=== PATIENT | female | born 1980 | race Caucasian/White ===

== ENCOUNTER 2017-12-11 22:19 | Emergency (ER) | payer MEDICAID ==
[~2017-12-11] VITALS: Ht 154.9 cm; Wt 67.6 kg
[2017-12-11 22:24] VITALS: BP_SYST 141
[2017-12-11 23:23] LABS: BILIRUBIN,URINE NEGATIVE (NEGATIVE); BLOOD, URINE TRACE (NEGATIVE); CLARITY/URINE CLEAR (CLEAR); COLOR,URINE YELLOW (YELLOW); GLUCOSE,URINE NEGATIVE (NEGATIVE); KETONES,URINE NEGATIVE (NEGATIVE); LEUKOCYTE ESTERASE ,URINE NEGATIVE (NEGATIVE); NITRITE, URINE NEGATIVE (NEGATIVE); PROTEIN URINE NEGATIVE (NEGATIVE); UROBILINOGEN,URINE 0.2 (0.2-1.0)
[2017-12-11 23:26] LABS: BACTERIA,URINE FEW /HPF (None Seen); WBC,URINE 0-3 /HPF (0-3)
[2017-12-12 00:09] LABS: INFLUENZA A&B ANTIGEN SCREEN NEGATIVE FOR A & B (NEGATIVE); STREPTOCOCCUS A SCREEN (RAPID) POSITIVE (NEGATIVE)
[2017-12-12] MEDS ORDERED: AMOXICILLIN 500 MG CAPSULE PO ONE (00:30)
[2017-12-12 00:50] VITALS: BP_SYST 139
== END 2017-12-12 00:50 | disposition home or self-care (01) ==
LOC: SED 22:19
DX: J02.0 Streptococcal pharyngitis (principal); M54.6 Pain in thoracic spine; R19.7 Diarrhea, unspecified
CPT/HCPCS: 36415; 81000-TC; 81025; 86403; 86710; 99284

== ENCOUNTER 2017-12-21 15:53 | Emergency (ER) | payer MEDICAID ==
[~2017-12-21] VITALS: Ht 154.9 cm; Wt 71.2 kg
[2017-12-21 15:59] VITALS: BP_SYST 131
[2017-12-21] MEDS ORDERED: LIDOCAINE VISCOUS 2%, 15 ML UDC MM ONE (16:30)
[2017-12-21] MEDS ORDERED: BELLADONNA ALKALOIDS/PHENOBARB 5 ML UDC PO ONE (16:30)
[2017-12-21] MEDS ORDERED: MAG-AL HYDROX/SIMETH 30 ML UDC PO ONE (16:30)
[2017-12-21 16:44] LABS: BILIRUBIN,URINE NEGATIVE (NEGATIVE); CLARITY/URINE CLEAR (CLEAR); COLOR,URINE YELLOW (YELLOW); GLUCOSE,URINE NEGATIVE (NEGATIVE); KETONES,URINE NEGATIVE (NEGATIVE); LEUKOCYTE ESTERASE ,URINE NEGATIVE (NEGATIVE); NITRITE, URINE NEGATIVE (NEGATIVE); PROTEIN URINE NEGATIVE (NEGATIVE); UROBILINOGEN,URINE 0.2 (0.2-1.0)
[2017-12-21 16:49] LABS: BLOOD, URINE TRACE (NEGATIVE)
[2017-12-21 16:57] LABS: BACTERIA,URINE RARE /HPF (None Seen); RBC,URINE 0-3 /HPF (0-3); WBC,URINE 0-3 /HPF (0-3)
[2017-12-21 16:57] LABS: BASOPHILS # (AUTO) 0.1 K/uL (0.0-0.2); BASOPHILS % (AUTO) 0.6 % (0.0-2.0); EOSINOPHILS % (AUTO) 0.4 % (0.0-4.0); HEMATOCRIT 36.5 % (36-48); HEMOGLOBIN 12.4 g/dL (12.0-16.0); LYMPHOCYTES % (AUTO) 9.8 % (20.5-51.5); MEAN CORPUSCULAR HEMOGLOBIN 30 pg (27-31); MEAN CORPUSCULAR HGB CONC 34 % (32-36); MEAN CORPUSCULAR VOLUME 88 fL (79.0-98.0); MONOCYTES # (AUTO) 0.3 K/uL (0.0-1.0); MONOCYTES % (AUTO) 2.9 % (1.7-9.3); NEUTROPHILS # (AUTO) 8.4 K/uL (1.8-7.7); NEUTROPHILS % (AUTO) 86.3 % (40.0-70.0); PLATELET COUNT (AUTO) 415 K/uL (130-430); RED BLOOD CELL COUNT(AUTO) 4.15 MIL/uL (4.2-6.2); RED CELL DISTRIBUTION WIDTH 11.6 % (9.0-15.0); WHITE BLOOD COUNT (AUTO) 9.8 K/uL (4.8-10.8)
[2017-12-21 17:06] LABS: PROTHROMBIN TIME 10.5 SECS (9.5-12.5)
[2017-12-21 17:43] LABS: CREATININE 0.62 mg/dL (0.55-1.30); POTASSIUM 3.8 mmol/L (3.5-5.1); TOTAL BILIRUBIN 0.3 mg/dL (0.0-1.0)
[2017-12-21 18:11] VITALS: BP_SYST 138
== END 2017-12-21 18:11 | disposition home or self-care (01) ==
LOC: SED 15:53
DX: K29.70 Gastritis, unspecified, without bleeding (principal); K21.9 Gastro-esophageal reflux disease without esophagitis
CPT/HCPCS: 36415; 80053; 81000; 81025; 82150; 83690; 85025; 85610; 99284; J2001